=== PATIENT | male | born 1945 | race Caucasian/White ===

== ENCOUNTER 2016-11-09 12:03 | Outpatient (CLI) | payer MEDICARE, BC ==
[2014-08-13 11:48] VITALS: BMI 22.3
[~2016-11-09 12:03] MED LIST: CHANTIX 1 MG TAB1 MG PO; LEVOXYL100 MCG PO; PERCOCET 10/3251 TA1 PO; TIROSINT100 MCG; TOPROL XL25 MG PO; TOPROL XL50 MG PO
== END 2016-11-09 13:53 ==
LOC: D.MAMMO 12:03
DX: N63 Unspecified lump in breast (principal)

== ENCOUNTER 2016-11-20 05:11 | Day surgery (SDC) | payer MEDICARE, BC ==
[~2016-11-20] VITALS: Ht 167.6 cm; Wt 59.9 kg
[~2016-11-20 05:11] MED LIST changes: +ADVIL200 MG PO; +BREO ELLIPTA 21 EACH; +PROAIR HFA8.5 GM INH; +SPIRIVA18 MCG INH
[2016-11-20 05:58] VITALS: BP 102/54; Ht 167.6 cm; Wt 59.9 kg
[2016-11-20 06:02] LABS: BASOPHILS 0.5 % (0-2); EOSINOPHILS 3.7 % (0-7); HEMATOCRIT 43.5 % (42.0-54.0); HEMOGLOBIN 14.7 g/dL (13.5-17.5); IMMATURE GRANULOCYTES 0.3 % (0-5); LYMPHOCYTES 23.7 % (15-50); MCH 30.5 pg (26.0-34.0); MCHC 33.8 g/dL (31.0-37.0); MCV 90.2 fL (80.0-100.0); MONOCYTES 10.5 % (2-11); NEUTROPHILS 61.3 % (40-80); PLATELET COUNT 184 10x3/uL (130-400); RBC 4.82 10x6/uL (4.20-6.10); RDW 14.2 % (11.5-14.5)
[2016-11-20 06:27] LABS: CALC OSMOLALITY 281 mosm/kg (275-300); CALCIUM 8.5 mg/dL (8.5-10.1); CARBON DIOXIDE 29.5 mmol/L (21.0-32.0); CHLORIDE - SERUM 105 mmol/L (98-107); CREATININE - SERUM 0.9 mg/dL (0.6-1.3); GLUCOSE 101 mg/dL (74-106); POTASSIUM - SERUM 3.9 mmol/L (3.5-5.1); SODIUM 140 mmol/L (136-145); UREA NITROGEN 22 mg/dL (7-18); eGFR NON AFRICAN AMERICAN 89 mL/min (90-120)
[2016-11-20] MEDS ORDERED: HYDROCODONE-APA1 TAB PO (10:04)
--- NOTE | 2016-11-20 17:14 | NUR ---
1115 IV DC WITH CATHER TIP INTACT
== END 2016-11-20 11:45 | disposition home or self-care (01) ==
LOC: D.OPS 05:11 → D.PAN 08:15 → D.OPS 08:15
PROVIDERS: Surgery
DX: K40.90 Unilateral inguinal hernia, without obstruction or gangrene, not specified as recurrent (principal); J44.9 Chronic obstructive pulmonary disease, unspecified; Z01.812 Encounter for preprocedural laboratory examination

== ENCOUNTER → 2020-02-26 09:53 | Outpatient (CLI) | payer MEDICARE, BC ==
[2016-11-20 05:58] VITALS: BMI 21.3
[~2020-02-26 09:53] MED LIST changes: +HYDROCODONE-APA1 TAB PO
== END | disposition home or self-care (01) ==
LOC: D.LAB 09:53
PROVIDERS: ATTEND Internal Medicine Pulmonary Disease
DX: Z11.59 Encounter for screening for other viral diseases (principal)

== ENCOUNTER 2020-02-29 07:47 | Day surgery (SDC) | payer MEDICARE, BC ==
[~2020-02-29] VITALS: Ht 167.6 cm; Wt 57.3 kg
[2020-02-29 09:59] LABS: CALC OSMOLALITY 281 mosm/kg (275-300); CALCIUM 9.1 mg/dL (8.5-10.1); CHLORIDE - SERUM 102 mmol/L (98-107); CREATININE - SERUM 0.9 mg/dL (0.6-1.3); GLUCOSE 113 mg/dL (74-106); POTASSIUM - SERUM 4.3 mmol/L (3.5-5.1); SODIUM 140 mmol/L (136-145); UREA NITROGEN 19 mg/dL (7-18); eGFR NON AFRICAN AMERICAN 88 mL/min (90-120)
[2020-02-29 10:09] VITALS: BP 125/80; Ht 167.6 cm; Wt 57.3 kg
[2020-02-29 10:23] LABS: APTT 30.8 SECONDS (22.8-39.4); INR 1.05 (0.85-1.17); PROTIME 13.7 SECONDS (11.6-15.0)
[2020-02-29 10:34] LABS: HEMATOCRIT 45.8 % (42.0-54.0); HEMOGLOBIN 15.1 g/dL (13.5-17.5); LYMPHOCYTES 16.1 % (15-50); MCH 29.5 pg (26.0-34.0); MCV 89.5 fL (80.0-100.0); MEAN PLATELET VOLUME 9.3 fL (7.4-10.4); NEUTROPHILS 73.9 % (40-80); RBC 5.12 10x6/uL (4.20-6.10); RDW 14.1 % (11.5-14.5); WBC 8.2 10x3/uL (4.8-10.8)
[2020-02-29 10:35] LABS: PLATELET COUNT 289 10x3/uL (130-400)
--- NOTE | 2020-02-29 11:53 | NUR ---
1135-RECD TO ROOM FROM IR. POST LUNG BIOPSY. RESP WITH EASE, O2 SAT 95%. DENIES PAIN/SOB. IV PATENT. REMINDED NPO. LEFT POST LUNG/UPPER BACK DRESSING DRY AND INTACT. SEE FREQUENT VITAL SIGN SHEET FOR V/S DOCUMENTATION.
--- NOTE | 2020-02-29 17:00 | NUR ---
1410 CXR REPORT REVIEWED. NO PNEUMOTHORAX. 1412 IV DC'D. CATHETER TIP INTACT. NO BLEEDING AT SITE AFTER HOLDING PRESSURE. BANDAID APPLIED. 1425 DISCHARGE INSTRUCTIONS HAVE BEEN REVIEWED WITH PT WHO VOICES UNDERSTANDING OF THESE INSTRUCTIONS.
== END 2020-02-29 14:25 | disposition home or self-care (01) ==
LOC: D.SP 07:47 → D.RT 08:00 → D.CT 11:00 → D.SP 14:25
PROVIDERS: Specialist; ATTEND Internal Medicine Pulmonary Disease
DX: R91.1 Solitary pulmonary nodule (principal); J44.9 Chronic obstructive pulmonary disease, unspecified

== ENCOUNTER → 2020-09-09 10:34 | Outpatient (CLI) | payer MEDICARE, BC ==
[2020-02-29 10:09] VITALS: BMI 20.3
== END | disposition home or self-care (01) ==
LOC: D.CT 10:34
PROVIDERS: ATTEND Internal Medicine Pulmonary Disease
DX: R91.1 Solitary pulmonary nodule (principal)